=== PATIENT | female | born 1985 | race Caucasian/White ===

== ENCOUNTER 2020-10-15 18:15 | Outpatient (CLI) | payer OTHER, SELFPAY ==
--- NOTE | ~2020-10-15 | XR_ITS ---
EXAMINATION: XR chest 2V DATE: 10/15/2020 18:31 INDICATION: Cough. COVID-19 one month ago. TECHNIQUE: Frontal and lateral views of the chest were obtained. COMPARISON: Chest CT 02/03/2012 FINDINGS: The chest demonstrates clear lungs without pneumonia, pleural effusion, or pneumothorax. Th e heart size is normal. IMPRESSION: 1. No acute cardiopulmonary disease. Reviewed, dictated and finalized at location A. NESS PLANNER
== END 2020-10-15 18:16 | disposition home or self-care (01) ==
PROVIDERS: PCP Emergency Medicine; Visit Provider Emergency Medicine
DX: R05 Cough (principal)
CPT/HCPCS: 71046

== ENCOUNTER 2020-10-27 08:01 | Outpatient (CLI) | payer OTHER, SELFPAY ==
--- NOTE | ~2020-10-27 | US_ITS ---
EXAMINATION: US abdomen complete DATE: 10/27/2020 08:37 INDICATION: Liver disease TECHNIQUE: Multiple grayscale and Doppler ultrasound images of the abdomen were obtained. COMPARISON: 03/17/2017 FINDINGS: Bowel gas obscures visualization of the pancreas. The visualized portions of the pancreas a re unremarkable. The liver demonstrates increased echogenicity, heterogenous echotexture, and decreas ed through transmission. No surface nodularity. Normal hepatopetal flow in the main portal vein. The gallbladder is normal with no abnormal wall thickening, pericholecystic fluid or stones. The normal c ommon bile duct measures 5 mm. There was no sonographic Chaney sign. The visualized portions of the a benitez and inferior vena cava are normal. The right kidney measures 9.2 x 4.4 x 4.9 cm. The left kidney measures 10.5 x 4.7 x 5.1 cm. The kidne ys demonstrate normal parenchymal echogenicity. There is no hydronephrosis. The spleen is normal in a ppearance and measures 11.9 cm. IMPRESSION: 1. Diffuse hepatic steatosis. Reviewed, dictated and finalized at location A. ER MANAGER
== END 2020-10-27 08:02 | disposition home or self-care (01) ==
PROVIDERS: PCP Emergency Medicine; Visit Provider Emergency Medicine
DX: K76.0 Fatty (change of) liver, not elsewhere classified (principal)
CPT/HCPCS: 76700

== ENCOUNTER 2020-12-30 11:10 | Emergency (ER) | payer OTHER, SELFPAY ==
--- NOTE | ~2020-12-30 | US_ITS ---
EXAMINATION: US right upper quadrant DATE: 12/30/2020 12:48 INDICATION: Abdominal pain. TECHNIQUE: Multiple grayscale and Doppler ultrasound images of the abdomen were obtained. COMPARISON: CT abdomen and pelvis 04/12/2011, abdomen ultrasound 10/27/2020 FINDINGS: The visualized portions of the head and body of the pancreas are normal. There is diffuse h epatic steatosis. No liver surface nodularity. There is normal flow in main portal vein. The gallblad massiel is normal in size. No gallstones or gallbladder wall thickening. There was no sonographic Chaney sign. The common duct is normal and measures 4 mm. IMPRESSION: 1. Diffuse hepatic steatosis. Reviewed, dictated and finalized at location B.
[2020-12-30 11:19] VITALS: BP 127/86; PULSE 76; RESP 18; TEMP 36.2; O2SAT 100
[2020-12-30 11:41] LABS: Basophils Absolute Auto 0.1 K/mm3 (0.0-0.1); Basophils Percent Auto 0.9 % (0.2-1.2); Eosinophils Absolute Auto 0.2 K/mm3 (0-0.3); Eosinophils Percent Auto 3.5 % (0-4.4); Hematocrit 41.7 % (37.0-47.0); Immature Granulocyte Absolute 0.04 K/mm3 (0.00-0.031); Immature Granulocyte Percent A 0.6 % (0-0.5); Lymphocytes Absolute Auto 1.54 K/mm3 (0.9-3.2); Lymphocytes Percent Auto 23.7 % (18.3-44.2); Mean Corpuscular HGB Conc 33.6 g/dl (32-36); Mean Corpuscular Hemoglobin 29.7 pg (26-34); Mean Corpuscular Volume 88.5 fl (80-100); Mean Platelet Volume 10.2 fl (7.4-10.4); Monocytes Absolute Auto 0.7 K/mm3 (0.1-0.6); Monocytes Percent Auto 10.9 % (2.6-8.5); Neutrophils Absolute Auto 3.9 K/mm3 (1.3-6.7); Neutrophils Percent Auto 60.4 % (45.5-73.1); Platelet Count Result 294 k/mm3 (150-375); Red Blood Count 4.71 M/mm3 (4.2-5.4); Red Cell Distribution Width 13.4 % (11.5-14.5); White Blood Count 6.5 K/mm3 (4.5-10.0)
[2020-12-30 11:43] LABS: Add Urine Microscopic? NO; Appearance Urine Clear (Clear); Bilirubin Urine Negative (Negative); Blood Urine Negative (Negative); Color Urine Yellow (Yellow); Glucose Urine UA Negative (Negative); Ketones Urine Negative (Negative); Leukocyte Esterase Ur Negative LEU/UL (Negative); Nitrate Urine Negative (Negative); Protein Urine Negative (Negative); Specific Grav Ur 1.009 (1.001-1.035); Urobilinogen Urine Negative mg/dL (<2.0)
[2020-12-30 11:50] LABS: Alanine Aminotransferase 74 U/L (4-35); Alkaline Phosphatase 94 U/L (38-126); Anion Gap 2 mmol/L (8-16); Aspartate Amino Transferase 61 U/L (14-36); Bilirubin,Total 0.3 mg/dL (0.2-1.3); Blood Urea Nitrogen 6 mg/dL (7-17); Calcium 8.5 mg/dL (8.4-10.2); Carbon Dioxide 29 mmol/L (22-30); Chloride 106 mmol/L (98-107); Estimated CRCL calculation 104 ml/min; Estimated Glomerular Filt Rate > 60; Glucose 89 mg/dL (65-105); Lipase 45 U/L (23-300); Potassium 3.8 mmol/L (3.4-5.0); Sodium 137 mmol/L (137-145)
[2020-12-30] MEDS: ONDANSETRON INJ 4 MG/2 ML VIAL IV PUSH (12:10)
[2020-12-30] MEDS: SODIUM CHLORIDE 0.9% IV 1,000 ML 999 ML IV CONT (12:10)
[2020-12-30] MEDS: PANTOPRAZOLE SODIUM IV 40 MG VIAL IV PUSH (12:10)
--- NOTE | 2020-12-30 13:57 | ED.GENADULT ---
HPI - General Adult General Chief complaint: Abdominal Pain Stated complaint: abd pain Time Seen by Provider: 12/30/20 11:36 Source: patient and RN notes reviewed Mode of arrival: ambulatory Limitations: no limitations History of Present Illness HPI narrative: Patient is a 35-year-old female who presents to emergency department for evaluation of nausea and vomiting patient has been having nausea and vomiting since Monday and has last had emesis yesterday afternoon patient notes aching pain to the abdomen patient denies any rectal bleeding melena diarrhea. Patient has been seen primary care for this and is currently not taking anything for her symptoms patient denies any sick contacts Related Data Allergies Allergy/AdvReac Type Severity Reaction Status Date / Time No Known Allergies Allergy Verified 07/29/19 17:51 Review of Systems Review of Systems: All systems reviewed & are unremarkable except as noted in HPI and below PMFSH Past Medical History Medical History (Updated 12/30/20 @ 14:03 by Remberto Campbell PA-C) Obesity Family History Family History (Updated 05/22/11 @ 21:58 by DOCTOR UNKNOWN) Other Family history of allergic disorder Social History Social History Smoking status: Former smoker Alcohol intake: current Exam Narrative: Exam Narrative: GENERAL: Well-appearing, obese, and in no acute distress. HEAD: Normocephalic, atraumatic. EYES: PERRLA and EOMI. ENT: Nares clear, no rhinorrhea or epistaxis. Mucous membranes moist. CHEST: Clear to auscultation. No respiratory distress. No wheezes rales or rhonchi HEART: Regular rate and rhythm. No murmur heard. Normal peripheral pulses. ABDOMEN: Soft, nontender, distended EXTREMITIES: Normal range of motion. No edema. SKIN: Warm, dry, no rash. NEURO: No focal deficits. Alert and oriented x3. Cranial nerves II through XII grossly intact PSYCH: Normal mood and affect. Course Course Emergency Course: Patient in the room at this time feeling much better with interventions was made aware of her case findings treatment plans and diagnosis will be discharged home with GI follow-up. Vital Signs Vital signs: Vital Signs Temperature 97.2 F L 12/30/20 11:19 Pulse Rate 76 12/30/20 11:19 Respiratory Rate 18 12/30/20 11:19 Blood Pressure 127/86 12/30/20 11:19 Pulse Oximetry 100 12/30/20 11:19 Temperature 97.2 F L 12/30/20 11:19 Pulse Rate 76 12/30/20 11:19 Respiratory Rate 18 12/30/20 11:19 Blood Pressure 127/86 12/30/20 11:19 Pulse Oximetry 100 12/30/20 11:19 Medical Decision Making MDM Narrative Medical decision making narrative: Patient with likely fatty liver unsure as etiology of her vomiting will be referred to GI on low-fat diet put on a PPI with nausea medicine felt appropriate for outpatient reevaluation she feels much better and comfortable to follow-up on an outpatient basis Vital Signs Vital Signs: Vital Signs Temperature 97.2 F L 12/30/20 11:19 Pulse Rate 76 12/30/20 11:19 Respiratory Rate 18 12/30/20 11:19 Blood Pressure 127/86 12/30/20 11:19 Pulse Oximetry 100 12/30/20 11:19 Temperature 97.2 F L 12/30/20 11:19 Pulse Rate 76 12/30/20 11:19 Respiratory Rate 18 12/30/20 11:19 Blood Pressure 127/86 12/30/20 11:19 Pulse Oximetry 100 12/30/20 11:19 Lab Data Result diagrams: 12/30/20 11:29 12/30/20 11:29 Labs: Lab Results 12/30/20 12/30/20 12/30/20 Range/Units 11:29 11:29 11:29 WBC 6.5 (4.5-10.0) K/mm3 RBC 4.71 (4.2-5.4) M/mm3 Hgb 14.0 (12.0-15.0) g/dL Hct 41.7 (37.0-47.0) % MCV 88.5 (80-100) fl MCH 29.7 (26-34) pg MCHC 33.6 (32-36) g/dl RDW 13.4 (11.5-14.5) % Plt Count 294 (150-375) k/mm3 MPV 10.2 (7.4-10.4) fl Immature Gran % (Auto) 0.6 H (0-0.5) % Neut % (Auto) 60.4 (45.5-73.1) % Lymph % (Auto) 23.7
== END 2020-12-30 14:17 | disposition home or self-care (01) ==
PROVIDERS: Emergency Medicine Emergency Medical Services; Emergency Provider Emergency Medicine; PCP Emergency Medicine
DX: K76.0 Fatty (change of) liver, not elsewhere classified (principal); R11.2 Nausea with vomiting, unspecified
CPT/HCPCS: 36415; 76705; 80053; 81003; 81025; 83690; 85025; 96361; 96365; 96375; 99284; C9113; J0131; J2405; J7030

== ENCOUNTER 2021-03-12 09:30 | Outpatient (CLI) | payer OTHER, SELFPAY ==
--- NOTE | ~2021-03-12 | NM_ITS ---
EXAMINATION: NM hepatobiliary wo pharm DATE: 03/12/2021 12:53 INDICATION: Abdominal pain COMPARISON: None. TECHNIQUE: 5 mCi Tc-99m mebrofenin (Choletec) was administered intravenously. Scintigraphic images o f the abdomen were obtained for one hour. At the 1 hour time point, the patient drank 8 oz Ensure, an d imaging was continued for 60 minutes. Gallbladder ejection fraction was calculated by the technolog ist. FINDINGS: There is normal clearance of radiotracer from the blood pool. There is homogeneous tracer u ptake by the liver. Activity progresses to the bowel and gallbladder. The gallbladder ejection fract ion (GBEF) is 49%. Note that with this technique, normal GBEF >= 33%. IMPRESSION: 1. Normal hepatobiliary scan. Reviewed, dictated and finalized at location A.
== END 2021-03-12 09:31 | disposition home or self-care (01) ==
PROVIDERS: PCP Emergency Medicine; Visit Provider Emergency Medicine
DX: R10.9 Unspecified abdominal pain (principal)
CPT/HCPCS: 78226; A9537

== ENCOUNTER 2022-07-18 12:21 | Emergency (ER) | payer OTHER, SELFPAY ==
[2022-07-18 13:13] VITALS: BP 140/87; PULSE 79; RESP 18; TEMP 36.3; O2SAT 100
--- NOTE | 2022-07-18 14:05 | ED.URI ---
HPI - URI/Sore Throat General Chief Complaint: Upper Respiratory Infection Stated Complaint: sorethroat,lt ear pain,cough Time Seen by Provider: 07/18/22 13:15 Source: patient Mode of arrival: ambulatory Limitations: no limitations History of Present Illness HPI Narrative: Duane is a 37-year-old female patient presenting to clinic today with complaints of sore throat, left ear pain, cough, congestion, and body aches. She reports that her son tested positive for influenza a just a few days ago. MD elicited complaint: sore throat and nasal congestion Related Data Allergies Allergy/AdvReac Type Severity Reaction Status Date / Time No Known Allergies Allergy Verified 07/18/22 13:34 Review of Systems Review of Systems: Pertinent positives per HPI. Patient denies any rash, headache, visual changes, dizziness, shortness of breath, chest pain, palpitations, nausea, vomiting, diarrhea, constipation, abdominal pain, or any urinary issues. PMFSH Past Medical History Medical History Obesity Family History Family History Other Family history of allergic disorder Social History Social History Smoking status: Former smoker Alcohol intake: current Comments At the time of my signature, I reviewed and agree with the nursing past medical, surgical, social, and family history. There is no relevant family history pertinent to the patient complaint. Exam Narrative: General: Well-developed, obese, in no apparent distress Head: Normocephalic, atraumatic Eyes: Pupils equally round and reactive to light bilaterally, EOM intact, sclera and conjunctive clear, no discharge, lids normal Ears: right TMs intact and clear, left TM intact, red, bulging, ear canals clear, no drainage, grossly hearing normal. Nose: Nares patent, clear nasal discharge, no inflammation, no sinus tenderness. Mouth: Oral pharynx without lesions or masses, good dentition, MMM. oropharynx red Neck: Supple, trachea midline, no enlargement of anterior or posterior cervical nodes, no thyroid masses or goiter palpable. Cardio: Regular rate and rhythm, s1 and s2 normal, no murmur appreciated. Resp: Clear to auscultation bilaterally, no rhonchi, rales, wheezing or rubs Course Course Emergency Course: Portions of this record may have been created with voice recognition software. Level of Care: Express Care Visit Vital Signs Vital signs: Vital Signs Temperature 36.3 C L 07/18/22 13:13 Pulse Rate 79 07/18/22 13:13 Respiratory Rate 18 07/18/22 13:13 Blood Pressure 140/87 07/18/22 13:13 Pulse Oximetry 100 07/18/22 13:13 Oxygen Delivery Room Air 07/18/22 13:13 Temperature 36.3 C L 07/18/22 13:13 Pulse Rate 79 07/18/22 13:13 Respiratory Rate 18 07/18/22 13:13 Blood Pressure 140/87 07/18/22 13:13 Pulse Oximetry 100 07/18/22 13:13 Oxygen Delivery Room Air 07/18/22 13:13 Vital signs reviewed MDM - URI/Sore Throat MDM Narrative Medical decision making narrative: at the time of the patient is resting comfortably on exam table. Patient has left otitis media with viral syndrome/ exposure to influenza. I will place her on a prescription for Tamiflu as well as amoxicillin prescriptions were printed as patient would like to take him to the pharmacy. Supportive measures were discussed to the patient she voiced understanding of discharge instructions and agrees to treatment plan. Differential Diagnosis Differential diagnosis: Likely sinusitis, viral infection, influenza and pharyngitis Discharge Plan Discharge Clinical Impression: Acute left otitis media, Acute viral syndrome, Exposure to influenza Patient Disposition: Home, Self-Care Condition: Stable Instructions: Antibiotic Form, Influenza (ED), Ear Infection (ED) Add
== END 2022-07-18 14:23 | disposition home or self-care (01) ==
PROVIDERS: Emergency Provider Nurse Practitioner Family; PCP Emergency Medicine
DX: H66.92 Otitis media, unspecified, left ear (principal); B34.9 Viral infection, unspecified; Z20.822 Contact with and (suspected) exposure to COVID-19; Z87.891 Personal history of nicotine dependence
CPT/HCPCS: 99213; G0463

== ENCOUNTER 2023-01-03 17:18 | Emergency (ER) | payer OTHER, SELFPAY ==
--- NOTE | ~2023-01-03 | XR_ITS ---
EXAMINATION: XR chest 2V DATE: 01/03/2023 18:13 INDICATION: Chest pain. Prior pericarditis. TECHNIQUE: PA and lateral views of the chest were obtained. COMPARISON: Chest radiograph dated 10/15/2020 FINDINGS: The lungs remain clear with no focal airspace opacities, pulmonary edema, pleural effusion or pneumot horax. The cardiomediastinal silhouette is normal. Visualized bones and soft tissues are unremarkable . IMPRESSION: 1. Normal chest radiograph. Reviewed, dictated and finalized at location A. IMPRESSION: 1. Normal chest radiograph.
--- NOTE | 2023-01-03 17:31 | ED.URI ---
HPI - URI/Sore Throat General Chief Complaint: Upper Respiratory Infection Stated Complaint: Chest Pain,Shortness of Breath Time Seen by Provider: 01/03/23 17:32 Source: patient Mode of arrival: ambulatory Limitations: no limitations History of Present Illness HPI Narrative: 37-year-old female presenting for complaint of ?cold sensation? in chest for about 2 days. Endorses difficulty taking a full deep breath, achy legs, mild fatigue today. Chest symptoms worsen when bending forward. Endorses COVID exposure, tested negative for COVID at home 2 days ago. She denies chest congestion or cough, wheezing, nausea vomiting, fevers or chills. She is not taking anything for symptoms. Endorses history of possible pericarditis stating she had fluid around her heart, that did not require intervention (10 years ago). Related Data Home Medications Medication Instructions Recorded Confirmed dulaglutide 3 mg/0.5 mL 3 mg subcut WEEKLY 01/03/23 01/03/23 subcutaneous pen injector (Trulicity) Allergies Allergy/AdvReac Type Severity Reaction Status Date / Time No Known Allergies Allergy Verified 01/03/23 17:42 Review of Systems Review of Systems: CONSTITUTIONAL: Denies fever, chills, or sweats. EYES: Denies visual changes, redness, or discharge. ENT: Denies rhinorrhea, congestion, sore throat, or otalgia. CARDIOVASCULAR: Denies chest pain, palpitations, or edema. RESPIRATORY: Per HPI GASTROINTESTINAL: Denies abdominal pain, nausea, vomiting, or diarrhea. SKIN: Denies rash, itching, or wounds. MUSCULOSKELETAL: Denies back pain, joint pain, or myalgia. NEUROLOGIC: Denies headache, numbness, tingling, or weakness. All systems reviewed & are unremarkable except as noted in HPI and below PMFSH Past Medical History Medical History Obesity Family History Family History Other Family history of allergic disorder Social History Social History Smoking status: Former smoker Alcohol intake: current Comments At time of signature, I have reviewed and agree with nursing past medical, surgical, social and family history unless otherwise noted. Please see nursing chart for further information. There is no relevant family history pertinent to the presenting complaint Exam Narrative: GENERAL: Well-appearing, in no acute distress. EYES: EOMI. No redness or drainage. Conjunctivae normal. ENT: Mucous membranes pink and moist. No rhinorrhea. NECK: Normal AROM. Supple. CHEST: No respiratory distress. Lungs clear throughout all silva HEART: Regular rate and rhythm. No murmur appreciated. ABDOMEN: Soft, nontender, nondistended, normal active bowel sounds. Occasional belching. EXTREMITIES: Normal range of motion. No edema. SKIN: Warm, dry, no rash. Capillary refill normal. Normal skin turgor. NEURO: Alert and oriented x3. Gait steady. PSYCH: Normal affect. Course Course Emergency Course: Patient is aware of diagnosis, understands and agrees to treatment plan. Anticipatory guidance given. Patient agrees to follow-up as directed and is aware of reasons to seek care at the emergency department. Portions of this record may have been created with voice recognition software Level of Care: Express Care Visit Vital Signs Vital signs: Vital Signs Temperature 97.6 F 01/03/23 17:44 Pulse Rate 81 01/03/23 17:44 Respiratory Rate 18 01/03/23 17:44 Blood Pressure 133/84 01/03/23 17:44 Pulse Oximetry 100 01/03/23 17:44 Oxygen Delivery Room Air 01/03/23 17:44 Temperature 97.6 F 01/03/23 17:44 Pulse Rate 81 01/03/23 17:44 Respiratory Rate 18 01/03/23 17:44 Blood Pressure 133/84 01/03/23 17:44 Pulse Oximetry 100 01/03/23 17:44 Oxygen Delivery Room Air 01/03/23 17:44 MDM - URI/Sore Throat MDM Armando
[2023-01-03 17:44] VITALS: BP 133/84; PULSE 81; RESP 18; TEMP 36.4; O2SAT 100
== END 2023-01-03 19:12 | disposition home or self-care (01) ==
PROVIDERS: Emergency Provider Nurse Practitioner Family; PCP Emergency Medicine
DX: R07.89 Other chest pain (principal); Z87.891 Personal history of nicotine dependence; E66.9 Obesity, unspecified; Z68.34 Body mass index [BMI] 34.0-34.9, adult
CPT/HCPCS: 71046; 99213; G0463

== ENCOUNTER 2023-02-22 10:31 | Emergency (ER) | payer OTHER, SELFPAY ==
--- NOTE | ~2023-02-22 | XR_ITS ---
Right foot Technique: AP, oblique, and lateral views were obtained. Clinical History: Pain Findings: No acute fracture or dislocation is seen. Osseous alignment is anatomic. Plantar calcaneal spur noted. Joint spaces are preserved without erosive or degenerative change. Soft tissues are unrem arkable. Impression: No fracture or dislocation. Reviewed, dictated and finalized at location . Impression: No fracture or dislocation.
[2023-02-22 10:38] VITALS: BP 129/84; PULSE 83; RESP 18; TEMP 36.3; O2SAT 99
--- NOTE | 2023-02-22 10:39 | ED.LOWEXIN ---
HPI - Extremity Injury (Lower) General Chief Complaint: Extremity Injury, Lower Stated Complaint: Rt Ankle Pain Time Seen by Provider: 02/22/23 10:39 Source: patient Mode of arrival: ambulatory Limitations: no limitations History of Present Illness HPI Narrative: 38 y/o female presented for c/o right ankle and foot pain after injury yesterday. States she roller her right ankle after missing a step outside. Reports swelling and bruising to the ankle and foot. Pain shoots up the lower leg with any movement. Patient has been walking on it a little, took ibuprofen yesterday. Related Data Home Medications Medication Instructions Recorded Confirmed dulaglutide 3 mg/0.5 mL 3 mg subcut WEEKLY 01/03/23 02/22/23 [facility] Allergies Allergy/AdvReac Type Severity Reaction Status Date / Time No Known Allergies Allergy Verified 02/22/23 10:31 Review of Systems Review of Systems: CONSTITUTIONAL: Denies body aches, fever, chills EYES: Denies visual changes ENT: Denies rhinorrhea, congestion CARDIOVASCULAR: Denies chest pain, palpitations, or edema. RESPIRATORY: Denies cough or dyspnea. GASTROINTESTINAL: Denies abdominal pain, nausea, vomiting, or diarrhea. SKIN: Denies rash, itching, or wounds. MUSCULOSKELETAL: per HPI NEUROLOGIC: Denies headache, numbness, tingling, or weakness. All systems reviewed & are unremarkable except as noted in HPI and below PMFSH Past Medical History Medical History Obesity Family History Family History Other Family history of allergic disorder Social History Social History Smoking status: Former smoker Alcohol intake: current Comments At time of signature, I have reviewed and agree with nursing past medical, surgical, social and family history unless otherwise noted. Please see nursing chart for further information. There is no relevant family history pertinent to the presenting complaint Exam Narrative: GENERAL: Well-appearing, well-nourished, and in no acute distress. HEAD: Normocephalic, atraumatic. EYES: PERRLA, conjunctivae clear NECK: Supple. CHEST: Speaks in full sentences. No respiratory distress. HEART: Regular rate and rhythm. Normal and equal peripheral pulses. EXTREMITIES: Right ankle with limited range of motion due to pain with movement. Moderate lateral ankle swelling and ecchymosis, tenderness. Right foot has normal strength and sensation. No open wounds or obvious deformity; alignment normal, pulse palpable and equal bilaterally, skin warm, dry, pink. Capillary refill less than 3 seconds. SKIN: Warm, dry, no rash. NEURO: Alert and oriented x3. PSYCH: Normal mood and affect Course Course Emergency Course: Patient is aware of diagnosis, understands and agrees to treatment plan. Anticipatory guidance given. Patient agrees to follow-up as directed and is aware of reasons to seek care at the emergency department. Portions of this record may have been created with voice recognition software Level of Care: Express Care Visit Vital Signs Vital signs: Vital Signs Temperature 97.3 F L 02/22/23 10:38 Pulse Rate 83 02/22/23 10:38 Respiratory Rate 18 02/22/23 10:38 Blood Pressure 129/84 02/22/23 10:38 Pulse Oximetry 99 02/22/23 10:38 Oxygen Delivery Room Air 02/22/23 10:38 Temperature 97.3 F L 02/22/23 10:38 Pulse Rate 83 02/22/23 10:38 Respiratory Rate 18 02/22/23 10:38 Blood Pressure 129/84 02/22/23 10:38 Pulse Oximetry 99 02/22/23 10:38 Oxygen Delivery Room Air 02/22/23 10:38 Reviewed MDM - Extremity Injury (Lower) MDM Narrative Medical decision making narrative: Results of x-ray reviewed with patient. Danish wrap applied, crutch training provided. Discussed physical exam findings. Advised
== END 2023-02-22 11:14 | disposition home or self-care (01) ==
PROVIDERS: Emergency Provider Nurse Practitioner Family; PCP Emergency Medicine
DX: S93.401A Sprain of unspecified ligament of right ankle, initial encounter (principal); S96.911A Strain of unspecified muscle and tendon at ankle and foot level, right foot, initial encounter; X50.9XXA Other and unspecified overexertion or strenuous movements or postures, initial encounter; E66.9 Obesity, unspecified; Z68.33 Body mass index [BMI] 33.0-33.9, adult; Z87.891 Personal history of nicotine dependence
CPT/HCPCS: 73610; 73630; 99213; G0463

== ENCOUNTER 2023-06-20 01:39 | Emergency (ER) | payer OTHER, SELFPAY ==
--- NOTE | ~2023-06-20 | CT_ITS ---
EXAMINATION: CT abdomen pelvis w con DATE: 06/20/2023 07:57 INDICATION: Epigastric abdominal pain. Nausea and vomiting. Diarrhea. TECHNIQUE: Computed tomography (CT) of the abdomen and pelvis was performed with 100 mL Omnipaque 350 intravenous contrast. Automated exposure control and iterative reconstruction technique were employe d. The dose-length product was 925.55 mGy-cm. COMPARISON: CT abdomen and pelvis 04/12/2011 FINDINGS: The visualized portions of the lung bases are clear without pneumonia or pleural effusion. The heart size is normal. No pericardial effusion. The liver, gallbladder, spleen, pancreas, adrenal glands, and kidneys are normal. There are no dilated loops of bowel. There is liquid stool in the col on correlating with the symptom of diarrhea. The appendix is normal. There are no pathologically enla rged lymph nodes. There is no free intraperitoneal fluid. There is a 13 mm uterine fibroid. There is mild thoracic and lumbar spondylosis. IMPRESSION: 1. No etiology for the patient's symptoms. Reviewed, dictated and finalized at location E.
[2023-06-20 01:52] LABS: Basophils Absolute Auto 0.1 K/mm3 (0.0-0.1); Basophils Percent Auto 0.7 % (0.2-1.2); Eosinophils Absolute Auto 0.5 K/mm3 (0-0.3); Eosinophils Percent Auto 4.2 % (0-4.4); Hematocrit 44.2 % (37.0-47.0); Immature Granulocyte Absolute 0.04 K/mm3 (0.00-0.031); Immature Granulocyte Percent A 0.4 % (0-0.5); Lymphocytes Absolute Auto 1.75 K/mm3 (0.9-3.2); Lymphocytes Percent Auto 15.5 % (18.3-44.2); Mean Corpuscular HGB Conc 33.9 g/dl (32-36); Mean Corpuscular Volume 85.3 fl (80-100); Mean Platelet Volume 10.6 fl (7.4-10.4); Monocytes Absolute Auto 1.1 K/mm3 (0.1-0.6); Monocytes Percent Auto 9.3 % (2.6-8.5); Neutrophils Absolute Auto 7.9 K/mm3 (1.3-6.7); Neutrophils Percent Auto 69.9 % (45.5-73.1); Platelet Count Result 355 k/mm3 (150-375); Red Blood Count 5.18 M/mm3 (4.2-5.4); Red Cell Distribution Width 13.2 % (11.5-14.5); White Blood Count 11.3 K/mm3 (4.5-10.0)
[2023-06-20 01:54] VITALS: BP 148/100; PULSE 105; RESP 15; TEMP 36.6; O2SAT 98
[2023-06-20 02:02] LABS: Alanine Aminotransferase 64 U/L (6-35); Albumin Level 4.8 g/dL (3.5-5.1); Alkaline Phosphatase 79 U/L (38-126); Anion Gap 12 mmol/L (8-16); Aspartate Amino Transferase 43 U/L (14-36); Bilirubin,Total 0.9 mg/dL (0.2-1.3); Blood Urea Nitrogen 11 mg/dL (7-17); Calcium 9.4 mg/dL (8.4-10.2); Carbon Dioxide 19 mmol/L (22-30); Chloride 107 mmol/L (98-107); Estimated CRCL calculation 87 ml/min; Estimated Glomerular Filt Rate > 60; Glucose 113 mg/dL (65-110); Lipase 61 U/L (23-300); Potassium 3.4 mmol/L (3.4-5.0); Sodium 138 mmol/L (137-145)
[2023-06-20 03:05] LABS: Appearance Urine Turbid (Clear); Bacteria Urine 4+ /hpf; Bilirubin Urine Negative (Negative); Blood Urine 1+ (Negative); Color Urine Dark Yellow (Yellow); Glucose Urine UA Negative (Negative); Ketones Urine Trace mg/dL (Negative); Leukocyte Esterase Ur 2+ LEU/UL (Negative); Need Manual Microscopic Reviewed; Nitrate Urine Negative (Negative); Protein Urine Trace mg/dL (Negative); Specific Grav Ur 1.021 (1.001-1.035); Squamous Epithelial Cell Urine Many /hpf (Few); Urobilinogen Urine 0.2 mg/dL (<2.0); WBC Urine 21-50 /hpf; pH Urine 5.5 (5.0-9.0)
[2023-06-20 03:06] LABS: Add Urine Microscopic? YES
[2023-06-20 05:19] VITALS: BP 131/97; PULSE 99; RESP 16; O2SAT 99
[2023-06-20 06:02] VITALS: BP 118/99; PULSE 74; RESP 16; O2SAT 98
[2023-06-20 07:23] VITALS: BP 120/82; PULSE 78; RESP 18; O2SAT 99
--- NOTE | 2023-06-20 07:36 | ED.GENADULT ---
HPI - General Adult General Chief complaint: Abdominal Pain Stated complaint: abdominal pain, indigestion, diarrhea Time Seen by Provider: 06/20/23 06:59 History of Present Illness HPI narrative: Patient is a 38-year-old female who presents ER with 6 days of abdominal discomfort. Reports it is generalized and bloating. Associated with diarrhea. She has had anorexia and has not been hungry due to her discomfort. No vomiting. No fevers or chills or sweats. No known sick contacts. She has not been on antibiotics. She did recently start Trulicity injections and is concerned that this could be a side effect. No alleviating factors. Patient does report she has a lot of acid indigestion when she belches. Related Data Home Medications Medication Instructions Recorded Confirmed dulaglutide 3 mg/0.5 mL 3 mg subcut WEEKLY 01/03/23 02/22/23 subcutaneous pen injector (Trulicity) Allergies Allergy/AdvReac Type Severity Reaction Status Date / Time No Known Allergies Allergy Verified 02/22/23 10:31 Review of Systems Review of Systems: All systems reviewed & are unremarkable except as noted in HPI and below Constitutional: Constitutional: Denies chills, Denies fatigue and Denies fever(s) ENT: Denies nasal congestion and Denies sore throat Cardiovascular: Cardiovascular: Denies chest pain, Denies rapid heart rate and Denies radiating jaw, neck or arm pain Respiratory: Respiratory: Denies cough and Denies dyspnea Gastrointestinal: Gastrointestinal: Reports abdominal pain, Reports diarrhea, Reports nausea and Denies vomiting Genitourinary: Genitourinary: Reports no additional female genitourinary complaints PMFSH Past Medical History Medical History Obesity Family History Family History Other Family history of allergic disorder Social History Social History Smoking status: Former smoker Alcohol intake: current Exam Narrative: GENERAL: Well-appearing, well-nourished, and in no acute distress. HEAD: Normocephalic, atraumatic. ENT: Mucous membranes moist. NECK: Supple. CHEST: Clear to auscultation. No respiratory distress. HEART: Regular rate and rhythm. Normal peripheral pulses. ABDOMEN: Soft, nontender, nondistended, normal active bowel sounds. EXTREMITIES: Normal range of motion. No edema. SKIN: Warm, dry, no rash. NEURO: Alert and oriented x3. PSYCH: Normal mood and affect. Course Course Emergency Course: Patient resting comfortably. Informed results. Patient felt appropriate for discharge home. Patient without urinary symptoms and it appears to be a bad sample so she will not be started on antibiotics. Vital Signs Vital signs: Vital Signs Temperature 97.8 F 06/20/23 01:54 Pulse Rate 105 H 06/20/23 01:54 Respiratory Rate 15 06/20/23 01:54 Blood Pressure 148/100 H 06/20/23 01:54 Pulse Oximetry 98 06/20/23 01:54 Oxygen Delivery Room Air 06/20/23 01:54 Temperature 97.8 F 06/20/23 01:54 Pulse Rate 71 06/20/23 08:44 Respiratory Rate 18 06/20/23 08:44 Blood Pressure 111/72 06/20/23 08:44 Pulse Oximetry 100 06/20/23 08:44 Oxygen Delivery Room Air 06/20/23 01:54 Medical Decision Making Vital Signs Vital Signs: Vital Signs Temperature 97.8 F 06/20/23 01:54 Pulse Rate 105 H 06/20/23 01:54 Respiratory Rate 15 06/20/23 01:54 Blood Pressure 148/100 H 06/20/23 01:54 Pulse Oximetry 98 06/20/23 01:54 Oxygen Delivery Room Air 06/20/23 01:54 Temperature 97.8 F 06/20/23 01:54 Pulse Rate 71 06/20/23 08:44 Respiratory Rate 18 06/20/23 08:44 Blood Pressure 111/72 06/20/23 08:44 Pulse Oximetry 100 06/20/23 08:44 Oxygen Delivery Room Air 06/20/23 01:54 Lab Data 06/20/23 01:48 06/20/23 01:48 Labs: La
[2023-06-20 08:44] VITALS: BP 111/72; PULSE 71; RESP 18; O2SAT 100
[2023-06-20 09:43] VITALS: BP 126/85; PULSE 83; RESP 18; O2SAT 99
== END 2023-06-20 09:48 | disposition home or self-care (01) ==
PROVIDERS: Emergency Medicine; Emergency Provider Emergency Medicine; PCP Emergency Medicine
DX: R10.84 Generalized abdominal pain (principal); R14.0 Abdominal distension (gaseous); E66.9 Obesity, unspecified; Z68.35 Body mass index [BMI] 35.0-35.9, adult; Z87.891 Personal history of nicotine dependence; Z79.85 Long-term (current) use of injectable non-insulin antidiabetic drugs
CPT/HCPCS: 36415; 74177; 80053; 81001; 81025; 83690; 85025; 87086; 87088; 99284; Q9967

== ENCOUNTER 2023-07-05 15:45 | Emergency (ER) | payer OTHER, SELFPAY ==
--- NOTE | 2023-07-05 15:52 | ED.URI ---
HPI - URI/Sore Throat General Chief Complaint: Upper Respiratory Infection Stated Complaint: Cough Source: patient and RN notes reviewed History of Present Illness HPI Narrative: 38 yo F presents to urgent care with son at side. Pt states she woke up Monday with a cough and for the last couple days, has felt more tired than normal. Denies any fevers, chills, N/V/D, chest pain, SOB, sore throat, or ear pain. Pt's son is also here with a cough. Has not taken anything for her symptoms. Related Data Home Medications Medication Instructions Recorded Confirmed dulaglutide 3 mg/0.5 mL 3 mg subcut WEEKLY 01/03/23 07/05/23 subcutaneous pen injector (Trulicity) phentermine 15 mg capsule 15 mg DIRECTED 07/05/23 07/05/23 Allergies Allergy/AdvReac Type Severity Reaction Status Date / Time No Known Allergies Allergy Verified 02/22/23 10:31 Review of Systems Review of Systems: Pertinent positives and pertinent negatives per HPI. [facility] Past Medical History Medical History Obesity Family History Family History Other Family history of allergic disorder Social History Social History Smoking status: Former smoker Alcohol intake: current Comments At the time of my signature, I reviewed and agree with the nursing past medical, surgical, social, and family history. There is no relevant family history pertinent to the patient complaint. Exam Narrative: GENERAL: This is a well-nourished, well-developed patient, in no apparent distress. HEAD: normocephalic, atraumatic. EYES: Sclera clear/white. Vision is grossly intact. EARS: External ears normal, auditory canals clear and without drainage. Hearing grossly intact. NOSE: External nose normal with no obvious nasal discharge, nares without redness, no rhinorrhea. THROAT: Mucous membranes moist, posterior pharynx clear. NECK: Neck supple, non-tender without lymphadenopathy, masses or thyromegaly. CARDIOVASCULAR: Regular rate and rhythm without murmurs, gallops, or rubs. RESPIRATORY: Clear to auscultation. Breath sounds equal bilaterally. No wheezes, rales, or rhonchi. SKIN: warm, intact with no suspicious lesions or rash, good texture and turgor. NEURO: awake, alert, and oriented to person, place and time. There were no obvious focal neurologic abnormalities. BACK: Nontender without deformity or crepitus. No flank tenderness. Course Course Level of Care: Express Care Visit Vital Signs Vital signs: Vital Signs Temperature 97.4 F L 07/05/23 15:56 Pulse Rate 76 07/05/23 15:56 Respiratory Rate 16 07/05/23 15:56 Blood Pressure 136/84 07/05/23 15:56 Pulse Oximetry 99 07/05/23 15:56 Oxygen Delivery Room Air 07/05/23 15:56 Temperature 97.4 F L 07/05/23 15:56 Pulse Rate 76 07/05/23 15:56 Respiratory Rate 16 07/05/23 15:56 Blood Pressure 136/84 07/05/23 15:56 Pulse Oximetry 99 07/05/23 15:56 Oxygen Delivery Room Air 07/05/23 15:56 reviewed MDM - URI/Sore Throat MDM Narrative Medical decision making narrative: Get plenty of fluids and increase your Vitamin C. May take OTC cough medicine if needed. Put humidifier in the bedroom. Follow up with your community engagement specialist next week if symptoms persist. Differential Diagnosis Differential diagnosis: Likely upper respiratory infection, croup, viral infection, bronchitis and other ( pneumonia) Critical Care Time Critical Care Time Critical Care Time: No Discharge Plan Discharge Clinical Impression: Cough Qualifiers: Cough type: acute Qualified Code(s): R05.1 - Acute cough Patient Disposition: Home, Self-Care Condition: Stable Instructions: Acute Cough (ED) Additional Instructions: Get plenty of fluids and increase your Vitamin C. May take OTC cough medicine if needed. Put humid
[2023-07-05 15:56] VITALS: BP 136/84; PULSE 76; RESP 16; TEMP 36.3; O2SAT 99
== END 2023-07-05 16:54 | disposition home or self-care (01) ==
PROVIDERS: Emergency Provider Nurse Practitioner Family; PCP Emergency Medicine
DX: R05.1 Acute cough (principal); Z79.899 Other long term (current) drug therapy; Z87.891 Personal history of nicotine dependence
CPT/HCPCS: 99211; G0463

== ENCOUNTER 2024-04-04 18:07 | Emergency (ER) | payer OTHER, SELFPAY ==
[2024-04-04] VITALS (11 sets, daily range): BP systolic 132–152; BP diastolic 88–95; PULSE 74–99; RESP 14–20; TEMP 36.4; O2SAT 94–100
--- NOTE | ~2024-04-04 | XR_ITS ---
EXAMINATION: XR chest 2V DATE: 04/04/2024 18:39 INDICATION: Chest pain and left arm pain. TECHNIQUE: PA and lateral views of the chest were obtained. COMPARISON: Chest radiograph dated 01/03/2023 FINDINGS: The lungs remain clear with no focal airspace opacities, pulmonary edema, pleural effusion or pneumot horax. The cardiomediastinal silhouette is normal. Visualized bones and soft tissues are unremarkable . IMPRESSION: 1. No acute cardiopulmonary disease. Reviewed, dictated and finalized at location A.
--- NOTE | 2024-04-04 18:08 | ECG_ITS ---
Test Date: 2024-04-04 18:15:59 Measurements Intervals [place] Rate: 84 P: 40 VT: 171 QRS: 52 QRSD: 82 T: 51 QT: 346 QTc: 410 Interpretive Statements SINUS RHYTHM NORMAL ELECTROCARDIOGRAM No previous ECG available for comparison Electronically Signed On 04-05-2024 14:52:14 CDT by Jarad Chan M.D.
--- NOTE | 2024-04-04 18:15 | ED.CHESTPAIN ---
HPI - Chest Pain General Chief Complaint: Chest Pain Stated Complaint: chest pain Time Seen by Provider: 04/04/24 18:13 Source: patient Mode of arrival: ambulatory Limitations: no limitations History of Present Illness HPI narrative: Patient is a 39-year-old female who presents the ED with report of left-sided chest pain. Patient reports having pain throughout her left upper arm radiating to and from her left chest the last few days. States pain is worse with movement, lifting her left arm, taking breath. She does note she recently did some heavy lifting, but denies feeling as though she strained herself. Has Hx of pericarditis with pericardial effusion around 11 years ago and states pain feels somewhat similar. does not currently cough follow with a creative services producer. Denies history lower extremity pain or swelling, recent cough or cold symptoms, fevers, shortness of breath, dyspnea with exertion. No recent long distance travel, hormonal control. No family history of heart disease. Related Data Home Medications Medication Instructions Recorded Confirmed dulaglutide 3 mg/0.5 mL 3 mg subcut WEEKLY 01/03/23 07/05/23 subcutaneous pen injector (Trulicity) phentermine 15 mg capsule 15 mg DIRECTED 07/05/23 07/05/23 Allergies Allergy/AdvReac Type Severity Reaction Status Date / Time No Known Allergies Allergy Verified 02/22/23 10:31 Review of Systems Review of Systems: All systems reviewed & are unremarkable except as noted in HPI. All systems reviewed & are unremarkable except as noted in HPI and below PMFSH Past Medical History Medical History Obesity Family History Family History Other Family history of allergic disorder Social History Social History Smoking status: Former smoker Alcohol intake: current Exam Narrative: GENERAL: Well appearing, obese with BMI 35.0, non-toxic, in no acute distress. HEAD: Normocephalic, atraumatic. RESPIRATORY: Airway patent, respirations nonlabored. Clear to auscultation bilaterally, no rales, rhonchi, wheezing. CARDIOVASCULAR: Regular rate and rhythm without murmurs, rubs, or gallops. Peripheral pulses intact. MUSCULOSKELETAL: Moves all extremities. No gross deformities. no lower extremity edema. No calf tenderness. Mild tenderness over left upper anterior chest wall with palpation. Full ROM of LUE. No swelling throughout LUE. SKIN: Warm, dry, normal color. NEURO: A&O X3. Speech clear. Cranial nerves II-XII grossly intact. Steady gait. No ataxic movements. PSYCHIATRIC: Appropriate mood and affect. Normal interaction. Course Vital Signs Vital signs: Vital Signs Temperature 97.6 F 04/04/24 18:12 Pulse Rate 99 04/04/24 18:12 Respiratory Rate 18 04/04/24 18:12 Blood Pressure 152/95 H 04/04/24 18:12 Pulse Oximetry 98 04/04/24 18:12 Oxygen Delivery Room Air 04/04/24 18:12 Temperature 97.6 F 04/04/24 18:12 Pulse Rate 80 04/04/24 21:45 Respiratory Rate 16 04/04/24 21:45 Blood Pressure 135/91 H 04/04/24 20:16 Pulse Oximetry 99 04/04/24 21:45 Oxygen Delivery Room Air 04/04/24 18:16 MDM - Chest Pain MDM Narrative Medical decision making narrative: Patient presented to ED with several day history of left arm and left-sided chest pain. History of pericarditis several years ago. Vital signs are stable upon arrival. Patient in no acute distress. EKG without concerning ST changes or diffuse ST elevation to suggest pericarditis at this time. Baseline troponin undetectable. 3HR trop also undetectable. Very low suspicion for ACS at this time. D-dimer WNL. Remainder basic laboratory studies are unremarkable. HEART score = 1 based on BMI. Patient is feeling better after Toradol. Discussed overall reassuring workup
[2024-04-04 18:30] LABS: BEDSIDEPREGUCG Negative
[2024-04-04 18:30] LABS: Basophils Absolute Auto 0.1 K/mm3 (0.0-0.1); Basophils Percent Auto 0.6 % (0.2-1.2); Eosinophils Absolute Auto 0.2 K/mm3 (0-0.3); Eosinophils Percent Auto 2.4 % (0-4.4); Hematocrit 42.3 % (37.0-47.0); Hemoglobin 14.3 g/dL (12.0-15.0); Immature Granulocyte Absolute 0.04 K/mm3 (0.00-0.031); Immature Granulocyte Percent A 0.4 % (0-0.5); Lymphocytes Absolute Auto 2.46 K/mm3 (0.9-3.2); Lymphocytes Percent Auto 26.3 % (18.3-44.2); Mean Corpuscular HGB Conc 33.8 g/dl (32-36); Mean Corpuscular Hemoglobin 29.3 pg (26-34); Mean Corpuscular Volume 86.7 fl (80-100); Mean Platelet Volume 10.3 fl (7.4-10.4); Monocytes Absolute Auto 0.7 K/mm3 (0.1-0.6); Monocytes Percent Auto 7.4 % (2.6-8.5); Neutrophils Absolute Auto 5.9 K/mm3 (1.3-6.7); Neutrophils Percent Auto 62.9 % (45.5-73.1); Platelet Count Result 312 k/mm3 (150-375); Red Blood Count 4.88 M/mm3 (4.2-5.4); Red Cell Distribution Width 13.4 % (11.5-14.5); White Blood Count 9.4 K/mm3 (4.5-10.0)
[2024-04-04 18:43] LABS: Prothrombin Time 13.6 Seconds (11.1-14.7)
[2024-04-04 18:44] LABS: Partial Thromboplastin Time 31.9 Seconds (22.3-36.8)
[2024-04-04 19:15] LABS: Alanine Aminotransferase 21 U/L (6-35); Albumin Level 4.4 g/dL (3.5-5.1); Alkaline Phosphatase 75 U/L (38-126); Anion Gap 11 mmol/L (4-12); Aspartate Amino Transferase 25 U/L (14-36); Bilirubin,Total 0.6 mg/dL (0.2-1.3); Blood Urea Nitrogen 13 mg/dL (7-17); Calcium 9.2 mg/dL (8.4-10.2); Carbon Dioxide 23 mmol/L (22-30); Chloride 103 mmol/L (98-107); Estimated CRCL calculation 96 ml/min; Estimated Glomerular Filt Rate > 60; Glucose 94 mg/dL (65-110); Lipase 88 U/L (23-300); Potassium 3.5 mmol/L (3.4-5.0); Sodium 137 mmol/L (137-145)
[2024-04-04 19:23] LABS: D Dimer 0.27 ug/mL (<0.48)
[2024-04-04 19:28] LABS: Troponin I < 0.012 ng/mL (0.000-0.034)
[2024-04-04] MEDS: KETOROLAC 30 MG/ML VIAL (*BKC) IV PUSH (20:14)
[2024-04-04 21:38] LABS: Troponin I < 0.012 ng/mL (0.000-0.034)
== END 2024-04-04 22:08 | disposition home or self-care (01) ==
PROVIDERS: Emergency Medicine; Emergency Provider Physician Assistant; PCP Emergency Medicine
DX: R07.89 Other chest pain (principal)
CPT/HCPCS: 36415; 71046; 80053; 81025; 83690; 84484; 85025; 85380; 85610; 85730; 93005; 96374; 97110; 97140; 99284; J1885

== ENCOUNTER 2024-04-11 08:27 | Emergency (ER) | payer OTHER, SELFPAY ==
[2024-04-11 08:58] VITALS: BP 126/83; PULSE 68; RESP 18; TEMP 36.4; O2SAT 99
--- NOTE | 2024-04-11 09:53 | ED.DENTAL ---
HPI - Dental/Oral General Chief complaint: Dental/Oral Stated complaint: swollen nodule in neck/ lip swelling Time Seen by Provider: 04/11/24 09:53 Source: patient, RN notes reviewed and old records reviewed Mode of arrival: ambulatory Limitations: no limitations History of Present Illness HPI Narrative: Patient had some dental work done approximately 1 week ago, she had several crowns, required several injections. She began to notice some swelling to the gingiva and the bottom lip, yesterday she noted pain and a lump to the back of the neck, right side. She denies any injury or trauma. No difficulty swallowing. She reports that she has had some clear drainage from a pinprick hole in the bottom of her lip. She denies any fever, chills, sweats. She is able to manage own secretions. No difficulty swallowing. Full range of motion to the neck. She has been taking ibuprofen and Tylenol with good results. Related Data Allergies Allergy/AdvReac Type Severity Reaction Status Date / Time No Known Allergies Allergy Verified 04/11/24 09:25 Review of Systems Review of Systems: All systems reviewed & are unremarkable except as noted in HPI and below Constitutional: Constitutional: Reports no additional constitutional complaints ENT: Reports system reviewed and no additional complaints, except as documented and Reports as per HPI Cardiovascular: Cardiovascular: Reports no additional cardiovascular complaints Respiratory: Respiratory: Reports no additional respiratory complaints Gastrointestinal: Gastrointestinal: Reports no additional gastrointestinal complaints [facility] Past Medical History Medical History Obesity Family History Family History Other Family history of allergic disorder Social History Social History Smoking status: Former smoker Alcohol intake: current Exam Const: General: cooperative, no acute distress, alert and awake Orientation/consciousness: oriented to person, oriented to place and oriented to time HENMT: Head: normal to inspection Mouth: Yes lip abnormal lower swelling and other (pinprick to center) Teeth and gingiva: gingiva abnormal diffusely erythematous Neck: Lymphatic: lymphadenopathy right posterior cervical single, hard, mobile and tender Resp: Effort & Inspection: normal respiratory effort and able to speak in complete sentences Auscultation: clear to auscultation bilaterally, no crackles, no rales, no rhonchi and no wheezes Cardio: Palpation: normal PMI Rate: regular rate Rhythm: regular rhythm Heart sounds: S1 normal heart sound present and S2 normal heart sound present Neuro: General: oriented to person, oriented to place and oriented to time Cranial nerves: Yes CN's II-XII intact bilaterally Psych: Appearance: grossly normal Thought process: Normal thought process present Insight: Good insight present (Psych) Judgement: Good judgement present (Psych) Course Course Level of Care: Express Care Visit Vital Signs Vital signs: Vital Signs Temperature 97.6 F 04/11/24 08:58 Pulse Rate 68 04/11/24 08:58 Respiratory Rate 18 04/11/24 08:58 Blood Pressure 126/83 04/11/24 08:58 Pulse Oximetry 99 04/11/24 08:58 Oxygen Delivery Room Air 04/11/24 08:58 Temperature 97.6 F 04/11/24 08:58 Pulse Rate 68 04/11/24 08:58 Respiratory Rate 18 04/11/24 08:58 Blood Pressure 126/83 04/11/24 08:58 Pulse Oximetry 99 04/11/24 08:58 Oxygen Delivery Room Air 04/11/24 08:58 MDM - Dental/Oral MDM Narrative Medical decision making narrative: Patient with lymphadenitis, likely secondary to dental procedure. Will start Augmentin. Emergency department for any new or worse symptoms. Primary care provider follow-up. Continue with Tylenol and/or ibuprofen as needed for discomfort.
== END 2024-04-11 10:20 | disposition home or self-care (01) ==
PROVIDERS: Emergency Provider Nurse Practitioner Family; PCP Emergency Medicine
DX: I88.9 Nonspecific lymphadenitis, unspecified (principal); Z87.891 Personal history of nicotine dependence; E66.9 Obesity, unspecified; Z68.33 Body mass index [BMI] 33.0-33.9, adult
CPT/HCPCS: 99213; G0463

== ENCOUNTER 2024-04-30 08:00 | Outpatient (RCR) | payer OTHER, SELFPAY ==
--- NOTE | 2024-03-13 15:10 | OPREHPOC ---
Outpatient Therapy Plan of Care This is a Multidisciplinary Plan of Care that may contain components documented by all disciplines (PT, OT, and ST.) PT Problem 1 PT Problem #1 Knowledge Deficit PT Goal 1 Goal *indep with HEP Target Visit 8 PT Problem 2 PT Problem #2 Pain PT Goal 1 Goal 1* pt report pain at worst rating of 3/10 2* radicular pain to R mid thigh at worst 3* self assessment rating of Oswestry 10% limitation in activity level Target Visit 8 PT Problem 3 PT Problem #3 Impaired Functional Mobility PT Goal 1 Goal increase trunk strength and stability, evident by pt able to perform without an increase in pain: 1* R prone hip extension x 10 reps 2* supine bridge through half of ROM 3* stand without R iliac crest elevated Target Visit 8
--- NOTE | 2024-03-13 15:10 | PTOPEVAL1 ---
Assessment and note entered by Nieves Marrero, PT Evaluation Information Assessment Status Evaluation Diagnosis low back pain, radicular into R LE ICD-10 Condition Codes (PT) Pain in low back M54.50,M54.16 Subjective Information chronic pain in back, since sledding accident at 23 yr old; increase about 1 year ago; no recent injury to back; have been doing more fitness exercises, trying to lose weight' pain starting to effect her daily life more had xray of R hip- pt reports it was negative; wants MRI but have to have PT first. 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 active with 3 children; Reported Pain Level Pain Score Self Report Additional Pain Score Comments pain range in the past week: 1-5/10; constant ache in low back, hip and into anterior hip/groin; radicular constant into anterior mid sewell increase pain: when first awaken in AM, increase activity- end of day decrease pain: change positions, over the counter meds- new script meloxicam-- not sure it is helping; heating pad that vibrates sleeping: prone or supine with R hip ER; is not a good sleeper- pain not really bother her sleeping ALSO reports R knee pain, feels like it is not coming from her back; with helping someone move, more irritated to knee and knee was swollen. Assessment PT Clinical Summary Duane has the diagnosis of low back pain. Pain is constant and radicular into R LE to anterior mid sewell. She reports chronic back pain since sledding accident at 23 years old. Recent increase in pain after more fitness activity at the gym for weight loss. Oswestry self assessment rating of 20% limitation in activity level. 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 With the evaluation, she has good flexibility of hips, with slight decrease in strength of trunk; pain is increased with R prone hip extension and supine bridging; and decreased with R hip flexion and ER motions;
--- NOTE | 2024-04-30 08:37 | PTOPDC ---
Assessment and note entered by Nieves Marrero, PT Discharge Report Assessment Status Discharge Diagnosis low back pain, radicular into R LE ICD-10 Condition Codes (PT) Pain in low back M54.50,M54.16 Subjective Information the therapy has helped, no longer have the pain into my leg; the stretches and exercises help my back; doing the exercises at home; have started back at the gym- did the treadmill about 1 mile before the ache in her back stopped her; have appt on Monday for follow up, expect to get an MRI agree to d/c PT and continue with HEP and increase activity as tolerated. Reported Pain Level Pain Score Self Report Additional Pain Score Comments pain staying at 2-3/10 all the time, ache in R low back; minimal pain to R lateral hip; increase pain: when awaken in the AM, end of the day; sit and put pressure on R butt cheek decrease pain: change positions, stretch, over the counter meds; Assessment PT Clinical Summary Duane has received 7 PT sessions. Compared to the initial evaluation: pain rating from 1-5/10 to 2-3/10; radicular pain has decreased from into R LE to mid sewell to now R lateral hip; continues to have ache and pain over R sacrum; R hip extension increases her pain; self assessment Oswestry rating from 20 to 18% limitation in activity level; increase in trunk and hip strength; education for HEP, body mechanics and pain management have been completed. The goals were partially achieved. Discharge PT services. She is to follow up with and continue with her HEP, progression of activity as pain tolerates. Plan of Care PT Services Indicated No
== END 2024-04-30 11:38 | disposition home or self-care (01) ==
LOC: ANHPT 08:00
PROVIDERS: PCP Emergency Medicine
DX: M54.50 Low back pain, unspecified (principal)
CPT/HCPCS: 97110; 97140; 97161

== ENCOUNTER 2024-08-28 08:13 | Emergency (ER) | payer OTHER, SELFPAY ==
[2024-08-28 08:38] VITALS: BP 124/84; PULSE 92; RESP 18; TEMP 36.4; O2SAT 97
[2024-08-28 09:21] LABS: EDINFLUASCREEN Negative (Negative); EDINFLUBSCREEN Negative (Negative)
[2024-08-28 09:22] LABS: EDCOVIDSCREEN Negative (Negative)
--- NOTE | 2024-08-28 09:23 | ED_ITS ---
HPI - General Adult General Chief complaint: Upper Respiratory Infection Stated complaint: expose to COVID Source: patient Mode of arrival: ambulatory Limitations: no limitations History of Present Illness HPI narrative: Pt presents for evaluation of sick symptoms for the past five days. Symptoms include sinus congestion, thick green nasal drainage, sore throat, cough, and muffled hearing. No fever, chills, nausea, vomiting or diarrhea. She has been exposed to COVID and flu. She has tried taking mucinex and sudafed for her symptoms. She does not smoke. Related Data Allergies Allergy/AdvReac Type Severity Reaction Status Date / Time No Known Allergies Allergy Verified 08/28/24 08:40 Review of Systems Review of Systems: CONSTITUTIONAL: Denies fever, chills, or sweats. EYES: Denies visual changes, redness, or discharge. ENT: reports scratchy throat, sinus congestion, thick green nasal drainage, and muffled hearing bilaterally CARDIOVASCULAR: Denies chest pain, palpitations, or edema. RESPIRATORY: Denies cough or dyspnea. GASTROINTESTINAL: Denies abdominal pain, nausea, vomiting, or diarrhea. GENITOURINARY: Denies dysuria or hematuria. SKIN: Denies rash or itching. MUSCULOSKELETAL: Denies back pain, joint pain, or myalgia. NEUROLOGIC: Denies headache, numbness, dizziness, or weakness. PSYCHIATRIC: Denies anxiety or depression. PMFSH Past Medical History Medical History Obesity Surgical History Surgical History No pertinent past surgical history Family History Family History Mother Family history non-contributory Other Family history of allergic disorder Social History Social History Smoking status: Former smoker Alcohol intake: current Living arrangements: with family Gender identity (if verbalized by the patient): Female Spiritual care concerns: No Exam Narrative: GENERAL: Well-appearing, well-nourished, and in no acute distress. HEAD: Normocephalic, atraumatic. EYES: PERRLA and EOMI. ENT: Nares clear, no rhinorrhea or epistaxis. Mucous membranes moist. Oropharynx without tonsillar hypertrophy exudate or other lesions. right tympanic membrane is erythematous and bulging. Left tympanic membrane appears mildly erythematous NECK: Supple. No adenopathy or masses. No carotid bruits or JVD CHEST: Clear to auscultation. No respiratory distress. No wheezes rales or rhonchi HEART: Regular rate and rhythm. No murmur heard. Normal peripheral pulses. ABDOMEN: Soft, nontender, nondistended, normal active bowel sounds. EXTREMITIES: Normal range of motion. No edema. SKIN: Warm, dry, no rash. NEURO: No focal deficits. Alert and oriented x3. PSYCH: Normal mood and affect. Course Course Emergency Course: this is a 39-year-old female who presented for evaluation of sick symptoms. COVID and flu were negative. She has evidence of otitis media on exam. Will treat with Augmentin. Increase hydration. OTC agents for symptom management. Follow up with primary provider. Go to the ER for worsening symptoms. Pt in agreement with plan of care. Level of Care: Express Care Visit Vital Signs Vital signs: Vital Signs Temperature 36.4 C 08/28/24 08:38 Pulse Rate 92 08/28/24 08:38 Respiratory Rate 18 08/28/24 08:38 Blood Pressure 124/84 08/28/24 08:38 Pulse Oximetry 97 08/28/24 08:38 Oxygen Delivery Room Air 08/28/24 08:38 Temperature 36.4 C 08/28/24 08:38 Pulse Rate 92 08/28/24 08:38 Respiratory Rate 18 08/28/24 08:38 Blood Pressure 124/84 08/28/24 08:38 Pulse Oximetry 97 08/28/24 08:38 Oxygen Delivery Room Air 08/28/24 08:38 Medical Decision Making Vital Signs Vital Signs: Vital Signs Temperature 36.4 C 08/28/24 08:38 Pulse Rate 92 08/28/24 08:38 Respiratory Rate 18 08/28/24 08:38 Blood Pressure 124/84 08/28/24 08:38 Pulse Oximetry 97 08/28/24 08:38 Oxygen Delivery Room Air 08/28/24 08:38 Temperature 36.4 C 08/28/24 08:38 Pulse Rate 92 08/28/24 08:38 Respiratory Rate 18 08/28/24 08:38 Blood Pressure 124/84 08/28/24 08:38 Pulse Oximetry 97 08/28/24 08:38 Oxygen Delivery Room Air 08/28/24 08:38 Lab Data Labs: Lab Results 08/28/24 Range/Units 09:20 POC Influenza A Ag Negative (Negative) POC Influenza B Ag Negative (Negative) POC SARS CoV-2 Ag Negative (Negative) Discharge Plan Discharge Clinical Impression: Acute otitis media, right Patient Disposition: Home, Self-Care Condition: Stable Instructions: Antibiotic Form, Ear Infection (ED) Patient Language: [place]ian Prescriptions: New amoxicillin-pot clavulanate 875-125 mg tablet 1 tablet PO Q12H Qty: 20 0RF Follow-up/Referrals: Mukesh Diaz MD [Primary Care Provider] - Stand Alone Forms: Work/School Release IP Time of Disposition: 09:20
== END 2024-08-28 09:30 | disposition home or self-care (01) ==
PROVIDERS: Emergency Provider Nurse Practitioner; PCP Emergency Medicine
DX: H66.91 Otitis media, unspecified, right ear (principal); Z87.891 Personal history of nicotine dependence; Z20.822 Contact with and (suspected) exposure to COVID-19
CPT/HCPCS: 87426; 87804; 99213; G0463